=== PATIENT | female | born 1980 | race Caucasian/White ===

== ENCOUNTER 2018-12-21 15:41 | Emergency (ER) | payer OTHER ==
[~2018-12-21] VITALS: Ht 167.6 cm; Wt 59.1 kg
[~2018-12-21 15:41] MED LIST: DIPH25CA83 PO; DULO-31 PO; PROC5TAB56 PO
[2018-12-21 15:57] VITALS: BP 144/85
== END 2018-12-21 16:15 | disposition home or self-care (01) ==
LOC: ER 15:42
DX: L71.0 Perioral dermatitis (principal); T49.0X5A Adverse effect of local antifungal, anti-infective and anti-inflammatory drugs, initial encounter; J45.909 Unspecified asthma, uncomplicated; Z88.5 Allergy status to narcotic agent; Z88.6 Allergy status to analgesic agent; Z79.899 Other long term (current) drug therapy; Y92.89 Other specified places as the place of occurrence of the external cause
CPT/HCPCS: 99281

== ENCOUNTER 2019-01-06 16:58 | Emergency (ER) | payer OTHER ==
[~2019-01-06] VITALS: Ht 167.6 cm; Wt 59.1 kg
[2019-01-06 17:00] VITALS: BP 131/88
--- NOTE | 2019-01-06 17:41 | NUR ---
WENT TO SEE THE PT TO DO ASSESSMENT ,DR KINCAID WENT TO SEE PT BUT NO ONE WAS IN THE ROOM,PT LFT WITHOUT ANY INFORMATION.DR KINCAID IS AWARE.
== END 2019-01-06 17:56 | disposition left against medical advice (07) ==
LOC: ER 16:59
DX: F41.9 Anxiety disorder, unspecified (principal); Z53.21 Procedure and treatment not carried out due to patient leaving prior to being seen by health care provider

== ENCOUNTER 2019-01-09 11:14 | Emergency (ER) | payer OTHER ==
[~2019-01-09] VITALS: Ht 170.2 cm; Wt 59.1 kg
[2019-01-09 11:24] VITALS: BP 161/100
== END 2019-01-09 12:54 | disposition left against medical advice (07) ==
LOC: ER 11:14
DX: F41.9 Anxiety disorder, unspecified (principal); Z53.21 Procedure and treatment not carried out due to patient leaving prior to being seen by health care provider

== ENCOUNTER 2019-03-16 15:37 | Emergency (ER) | payer OTHER ==
[~2019-03-16] VITALS: Ht 167.6 cm; Wt 59.1 kg
[2019-03-16] MEDS ORDERED: CLON-528 PO (16:27)
[2019-03-16] MEDS ORDERED: DULO-31 PO (16:28)
[2019-03-16] MEDS ORDERED: clonazePAM 1mg tablet PO ONE (16:30)
--- NOTE | 2019-03-16 16:46 | NUR ---
ROXANA REPORTS THAT SHE HAS EMPLOYED MANY TOOLS FRO HER ANXIETY SUCH HEALTHIER DIET, EXCERSIZE, SLOW BREATHING AND MEDIATATION. HER "PANIC ATTACKS" TEND TO HAPPEN AT WORK. ROXANA HAS NOT IDENTIFIED TRIGGERS AT WORK. PATIENT IS GOING TO GET RECONNECTED WITH HER THERAPIST.
[2019-03-16 16:49] VITALS: BP 124/65
== END 2019-03-16 16:52 | disposition home or self-care (01) ==
LOC: ER 15:38
DX: F41.9 Anxiety disorder, unspecified (principal); J45.909 Unspecified asthma, uncomplicated; F32.9 Major depressive disorder, single episode, unspecified; F10.99 Alcohol use, unspecified with unspecified alcohol-induced disorder; Z98.890 Other specified postprocedural states; Z88.5 Allergy status to narcotic agent; Z88.6 Allergy status to analgesic agent; Z88.8 Allergy status to other drugs, medicaments and biological substances; Z79.899 Other long term (current) drug therapy; Y90.9 Presence of alcohol in blood, level not specified
CPT/HCPCS: 93005; 99284

== ENCOUNTER 2019-05-01 15:41 | Emergency (ER) | payer OTHER ==
[~2019-05-01] VITALS: Ht 167.6 cm; Wt 60.0 kg
[~2019-05-01 15:41] MED LIST changes: +CLON-528 PO
[2019-05-01] MEDS ORDERED: hydrOXYzine 25 MG tablet PO ONE (16:00)
[2019-05-01 17:41] VITALS: BP 127/96
== END 2019-05-01 18:05 | disposition home or self-care (01) ==
LOC: ER 15:41
DX: I10 Essential (primary) hypertension (principal); J45.909 Unspecified asthma, uncomplicated; F41.9 Anxiety disorder, unspecified; F32.9 Major depressive disorder, single episode, unspecified; Z98.890 Other specified postprocedural states; Z88.5 Allergy status to narcotic agent; Z88.6 Allergy status to analgesic agent; Z88.8 Allergy status to other drugs, medicaments and biological substances; Z79.2 Long term (current) use of antibiotics; Z79.899 Other long term (current) drug therapy
CPT/HCPCS: 99283; Z7610; 99282

== ENCOUNTER 2020-01-17 22:27 | Emergency (ER) | payer OTHER ==
[~2020-01-17] VITALS: Ht 167.6 cm; Wt 59.1 kg
[2020-01-17 22:29] VITALS: BP 131/95
[2020-01-17] MEDS ORDERED: ipratropium/albuterol 3ml nebule NEB ONE (22:40)
[2020-01-17] MEDS ORDERED: dexamethasone 4mg tablet PO ONE (22:40)
[2020-01-17] MEDS ORDERED: IPRA3AMP31 IH (22:49)
--- NOTE | 2020-01-17 23:26 | NUR ---
Pt stated she doesnt want to take oral steroids.
== END 2020-01-17 23:41 | disposition home or self-care (01) ==
LOC: ER 22:27
DX: J45.901 Unspecified asthma with (acute) exacerbation (principal); J20.9 Acute bronchitis, unspecified; F41.9 Anxiety disorder, unspecified; F32.9 Major depressive disorder, single episode, unspecified; Z72.89 Other problems related to lifestyle; Z88.5 Allergy status to narcotic agent; Z79.899 Other long term (current) drug therapy
CPT/HCPCS: 94640; 94760; 99283

== ENCOUNTER 2020-04-18 15:53 | Emergency (ER) | payer OTHER ==
[~2020-04-18] VITALS: Ht 167.6 cm; Wt 61.1 kg
[~2020-04-18 15:53] MED LIST changes: +IPRA3AMP31 IH
[2020-04-18 15:56] VITALS: BP 152/98
== END 2020-04-18 16:42 | disposition home or self-care (01) ==
LOC: ER 15:54
DX: R03.0 Elevated blood-pressure reading, without diagnosis of hypertension (principal); F41.1 Generalized anxiety disorder; J45.909 Unspecified asthma, uncomplicated; Z88.8 Allergy status to other drugs, medicaments and biological substances; Z79.899 Other long term (current) drug therapy
CPT/HCPCS: 93005; 99283

== ENCOUNTER 2020-09-17 12:23 | Emergency (ER) | payer OTHER ==
[~2020-09-17] VITALS: Ht 167.6 cm; Wt 61.4 kg
[2020-09-17 13:11] LABS: BASOPHILS # (AUTO) 0.1 X10'3 (0-0.2); BASOPHILS % (AUTO) 1.3 % (0-1); EOSINOPHILS # (AUTO) 0.3 X10'3 (0-0.9); EOSINOPHILS % (AUTO) 7.1 % (0-6); HEMATOCRIT 39.1 % (35.0-45.0); HEMOGLOBIN 13.2 g/dl (12.0-16.0); LYMPHOCYTES # (AUTO) 1.4 X10'3 (1.1-4.8); LYMPHOCYTES % (AUTO) 33.2 % (21-51); MEAN CORPUSCULAR HGB CONC 33.9 g/dL (33.0-36.5); MEAN CORPUSCULAR VOLUME 88.6 FL (78-98); MONOCYTES # (AUTO) 0.5 X10'3 (0-0.9); MONOCYTES % (AUTO) 10.7 % (2-12); NEUTROPHILS # (AUTO) 2.1 X10'3 (1.8-7.7); NEUTROPHILS % (AUTO) 47.7 % (42-75); PLATELET COUNT 348 X10'3 (140-440); RED BLOOD COUNT 4.41 X10'6 (4.20-5.60); RED CELL DISTRIBUTION WIDTH 12.9 % (11.5-14.5); WHITE BLOOD COUNT 4.4 X10'3 (4.5-11.0)
[2020-09-17 13:22] LABS: ALANINE AMINOTRANSFERASE 27 U/L (12-78); ALBUMIN 3.8 G/DL (3.4-5.0); ALKALINE PHOSPHATASE 56 IU/L (46-116); ANION GAP 8 (8-16); ASPARTATE AMINO TRANSFERASE 21 U/L (10-37); BILIRUBIN,TOTAL 0.8 MG/DL (0.1-1.0); BLOOD UREA NITROGEN 12 MG/DL (7-18); BUN/CREATININE RATIO 14.3 (6.6-38.0); CALCIUM 8.5 MG/DL (8.5-10.1); CHLORIDE 104 MMOL/L (99-107); CREATININE 0.84 MG/DL (0.40-0.90); GLUCOSE 100 MG/DL (70-104); POTASSIUM 4.2 MMOL/L (3.5-5.1); SODIUM 139 MMOL/L (135-145); TOTAL CARBON DIOXIDE 26.9 MMOL/L (24-32); TOTAL PROTEIN 7.5 G/DL (6.4-8.2); eGFR 75 ML/MIN
[2020-09-17 14:40] VITALS: BP 135/94
== END 2020-09-17 15:07 | disposition home or self-care (01) ==
LOC: ER 12:25
DX: F41.9 Anxiety disorder, unspecified (principal); F17.210 Nicotine dependence, cigarettes, uncomplicated; F32.9 Major depressive disorder, single episode, unspecified; Z60.2 Problems related to living alone; J45.909 Unspecified asthma, uncomplicated; Z88.5 Allergy status to narcotic agent; Z88.6 Allergy status to analgesic agent; Z88.8 Allergy status to other drugs, medicaments and biological substances; Z79.899 Other long term (current) drug therapy
CPT/HCPCS: 36415; 71045; 80053; 82948; 83880; 84484; 85025; 93005; 99285

== ENCOUNTER 2021-01-10 08:39 | Emergency (ER) | payer OTHER ==
[~2021-01-10] VITALS: Ht 167.6 cm; Wt 61.4 kg
[2021-01-10 08:44] VITALS: BP 135/93
[2021-01-10] MEDS ORDERED: cloNIDine 0.1 mg tablet PO ONE (09:05)
== END 2021-01-10 10:10 | disposition home or self-care (01) ==
LOC: ER 08:39
DX: F41.9 Anxiety disorder, unspecified (principal); F32.9 Major depressive disorder, single episode, unspecified; J45.909 Unspecified asthma, uncomplicated; Z88.5 Allergy status to narcotic agent; Z88.6 Allergy status to analgesic agent; Z88.8 Allergy status to other drugs, medicaments and biological substances
CPT/HCPCS: 99281; 99283

== ENCOUNTER → 2022-03-11 | Emergency (ER) | payer MEDICAID, OTHER ==
[~2022-03-11] VITALS: Ht 168.9 cm; Wt 62.0 kg
[~2022-03-11] MED LIST changes: +ALB0.5UD IH; +PRED20TA PO; +predniSONE 20 mg tablet PO ONE
[2022-03-11 20:12] VITALS: BP 129/92
== END | disposition home or self-care (01) ==
LOC: ER 19:45
DX: J45.909 Unspecified asthma, uncomplicated (principal); R07.89 Other chest pain; R06.02 Shortness of breath; F41.9 Anxiety disorder, unspecified; F32.A Depression, unspecified; Z72.89 Other problems related to lifestyle; Z60.2 Problems related to living alone; Z88.5 Allergy status to narcotic agent; Z88.8 Allergy status to other drugs, medicaments and biological substances; Z79.899 Other long term (current) drug therapy
CPT/HCPCS: 99283; J7512

== ENCOUNTER 2022-03-27 11:39 | Emergency (ER) | payer SELFPAY ==
[~2022-03-27] VITALS: Ht 167.6 cm; Wt 61.0 kg
[~2022-03-27 11:39] MED LIST changes: -predniSONE 20 mg tablet PO ONE
[2022-03-27 11:51] VITALS: BP 150/99
[2022-03-27 11:59] LABS: BASOPHILS # (AUTO) 0.1 X10'3 (0-0.2); BASOPHILS % (AUTO) 0.6 % (0-1); EOSINOPHILS # (AUTO) 0.2 X10'3 (0-0.9); EOSINOPHILS % (AUTO) 1.6 % (0-6); HEMATOCRIT 40.9 % (35.0-45.0); HEMOGLOBIN 13.3 g/dl (12.0-16.0); LYMPHOCYTES # (AUTO) 3.1 X10'3 (1.1-4.8); LYMPHOCYTES % (AUTO) 26.2 % (21-51); MEAN CORPUSCULAR HGB CONC 32.5 g/dL (33.0-36.5); MEAN CORPUSCULAR VOLUME 89.1 FL (78-98); MEAN PLATELET VOLUME 7.6 FL (7.4-10.4); MONOCYTES # (AUTO) 0.8 X10'3 (0-0.9); MONOCYTES % (AUTO) 6.7 % (2-12); NEUTROPHILS # (AUTO) 7.6 X10'3 (1.8-7.7); NEUTROPHILS % (AUTO) 64.9 % (42-75); PLATELET COUNT 387 X10'3 (140-440); RED BLOOD COUNT 4.59 X10'6 (4.20-5.60); RED CELL DISTRIBUTION WIDTH 12.9 % (11.5-14.5); WHITE BLOOD COUNT 11.7 X10'3 (4.5-11.0)
[2022-03-27 12:31] LABS: ALANINE AMINOTRANSFERASE 26 U/L (12-78); ALBUMIN/GLOBULIN RATIO 1.2 (1.1-1.5); ALKALINE PHOSPHATASE 58 IU/L (46-116); ANION GAP 11 (8-16); ASPARTATE AMINO TRANSFERASE 17 U/L (10-37); BILIRUBIN,TOTAL 0.6 MG/DL (0.1-1.0); BLOOD UREA NITROGEN 18 MG/DL (7-18); BUN/CREATININE RATIO 20.9 (6.6-38.0); CHLORIDE 98 MMOL/L (99-107); CREATININE 0.86 MG/DL (0.40-0.90); GLUCOSE 94 MG/DL (70-104); MAGNESIUM 1.8 MG/DL (1.5-2.4); POTASSIUM 3.6 MMOL/L (3.5-5.1); SODIUM 134 MMOL/L (135-145); TOTAL CARBON DIOXIDE 24.9 MMOL/L (24-32); TOTAL PROTEIN 7.4 G/DL (6.4-8.2); eGFR 72 ML/MIN
== END 2022-03-27 14:48 | disposition home or self-care (01) ==
LOC: ER 11:40
DX: R07.89 Other chest pain (principal); J45.909 Unspecified asthma, uncomplicated; F41.9 Anxiety disorder, unspecified; F32.9 Major depressive disorder, single episode, unspecified; Z72.89 Other problems related to lifestyle; Z60.2 Problems related to living alone; Z79.899 Other long term (current) drug therapy; Z88.5 Allergy status to narcotic agent; Z88.6 Allergy status to analgesic agent
CPT/HCPCS: 36415; 71045; 80053; 83735; 83880; 84484; 85025; 93005; 99285

== ENCOUNTER 2022-09-21 12:17 | Emergency (ER) | payer MEDICAID, OTHER ==
[~2022-09-21] VITALS: Ht 167.6 cm; Wt 62.3 kg
[~2022-09-21 12:17] MED LIST changes: -ALB0.5UD IH; -PRED20TA PO
[2022-09-21 12:24] VITALS: BP 115/89
--- NOTE | 2022-09-21 12:30 | NUR ---
EKG 1220
[2022-09-21 12:38] LABS: BASOPHILS # (AUTO) 0.1 X10'3 (0-0.2); BASOPHILS % (AUTO) 1.2 % (0-1); EOSINOPHILS # (AUTO) 0.5 X10'3 (0-0.9); EOSINOPHILS % (AUTO) 10.3 % (0-6); HEMATOCRIT 39.9 % (35.0-45.0); HEMOGLOBIN 13.5 g/dl (12.0-16.0); LYMPHOCYTES # (AUTO) 1.7 X10'3 (1.1-4.8); LYMPHOCYTES % (AUTO) 33.7 % (21-51); MEAN CORPUSCULAR HEMOGLOBIN 28.4 PG (27.0-31.0); MEAN CORPUSCULAR HGB CONC 33.8 g/dL (33.0-36.5); MEAN CORPUSCULAR VOLUME 84.2 FL (78-98); MEAN PLATELET VOLUME 7.7 FL (7.4-10.4); MONOCYTES # (AUTO) 0.4 X10'3 (0-0.9); MONOCYTES % (AUTO) 7.9 % (2-12); NEUTROPHILS # (AUTO) 2.4 X10'3 (1.8-7.7); NEUTROPHILS % (AUTO) 46.9 % (42-75); PLATELET COUNT 371 X10'3 (140-440); RED BLOOD COUNT 4.74 X10'6 (4.20-5.60); RED CELL DISTRIBUTION WIDTH 14.1 % (11.5-14.5); WHITE BLOOD COUNT 5.1 X10'3 (4.5-11.0)
[2022-09-21] MEDS ORDERED: albuterol 2.5 MG/3 ML nebule NEB ONE (13:55)
[2022-09-21] MEDS ORDERED: ALBU8HFA PO (13:58)
[2022-09-21] MEDS ORDERED: FLUT1DIS INH (13:58)
[2022-09-21] MEDS ORDERED: MONT-40 PO (13:58)
== END 2022-09-21 14:39 | disposition home or self-care (01) ==
LOC: ER 12:17
DX: J45.998 Other asthma (principal); Z88.5 Allergy status to narcotic agent; Z88.6 Allergy status to analgesic agent
CPT/HCPCS: 36415; 71045; 84484; 85025; 93005; 94640; 94760; 99285

== ENCOUNTER 2023-08-06 15:36 | Emergency (ER) | payer MEDICAID ==
[~2023-08-06] VITALS: Ht 167.6 cm; Wt 63.7 kg
[~2023-08-06 15:36] MED LIST changes: -CLON-528 PO; +CLON0.5T2 PO; +FLUT1DIS INH; +MONT-40 PO
[2023-08-06 16:09] VITALS: BP 161/105; PULSE 80; RESP 18; TEMP 97.3; O2SAT 98
== END 2023-08-06 22:27 | disposition left against medical advice (07) ==
LOC: ER 15:37
DX: J45.909 Unspecified asthma, uncomplicated (principal); Z53.21 Procedure and treatment not carried out due to patient leaving prior to being seen by health care provider

== ENCOUNTER 2023-08-29 00:51 | Emergency (ER) | payer MEDICAID ==
[~2023-08-29] VITALS: Ht 167.6 cm; Wt 63.2 kg
[2023-08-29 02:49] VITALS: BP 119/86; PULSE 63; RESP 18; TEMP 97.7; O2SAT 97
== END 2023-08-29 02:50 | disposition home or self-care (01) ==
LOC: ER 00:51
DX: I10 Essential (primary) hypertension (principal); J45.909 Unspecified asthma, uncomplicated; F41.9 Anxiety disorder, unspecified; F32.A Depression, unspecified; Z60.2 Problems related to living alone; Z88.8 Allergy status to other drugs, medicaments and biological substances; Z79.899 Other long term (current) drug therapy
CPT/HCPCS: 93005; 99283

== ENCOUNTER 2024-02-04 22:19 | Emergency (ER) | payer MEDICAID ==
[~2024-02-04] VITALS: Ht 167.6 cm; Wt 65.1 kg
[2024-02-04 22:28] VITALS: BP 153/107; PULSE 67; RESP 16; TEMP 97.8; O2SAT 100
== END 2024-02-04 22:50 | disposition home or self-care (01) ==
LOC: ER 22:19
DX: I10 Essential (primary) hypertension (principal); J45.909 Unspecified asthma, uncomplicated; F41.9 Anxiety disorder, unspecified; F32.A Depression, unspecified; F17.210 Nicotine dependence, cigarettes, uncomplicated; Z60.2 Problems related to living alone; Z88.8 Allergy status to other drugs, medicaments and biological substances; Z88.6 Allergy status to analgesic agent; Z88.5 Allergy status to narcotic agent; Z79.899 Other long term (current) drug therapy
CPT/HCPCS: 99281

== ENCOUNTER 2024-03-20 13:24 | Emergency (ER) | payer MEDICAID ==
[~2024-03-20] VITALS: Ht 167.6 cm; Wt 63.6 kg
[2024-03-20 13:33] VITALS: TEMP 98.6
[2024-03-20] MEDS: albuterol 2.5 MG/3 ML nebule NEB ONE (14:15)
[2024-03-20 14:18] VITALS: PULSE 66; RESP 14; O2SAT 99
[2024-03-20] MEDS: predniSONE 20 mg tablet PO ONE (14:25)
[2024-03-20 14:29] VITALS: PULSE 72; RESP 12; O2SAT 99
[2024-03-20 14:40] LABS: BASOPHILS # (AUTO) 0.1 X10'3 (0-0.2); BASOPHILS % (AUTO) 1.3 % (0-1); EOSINOPHILS # (AUTO) 0.3 X10'3 (0-0.9); EOSINOPHILS % (AUTO) 5.6 % (0-6); HEMATOCRIT 37.9 % (35.0-45.0); HEMOGLOBIN 12.9 g/dl (12.0-16.0); LYMPHOCYTES # (AUTO) 1.8 X10'3 (1.1-4.8); LYMPHOCYTES % (AUTO) 34.7 % (21-51); MEAN CORPUSCULAR HEMOGLOBIN 29.6 PG (27.0-31.0); MEAN CORPUSCULAR VOLUME 87.2 FL (78-98); MEAN PLATELET VOLUME 7.5 FL (7.4-10.4); MONOCYTES # (AUTO) 0.4 X10'3 (0-0.9); MONOCYTES % (AUTO) 8.3 % (2-12); NEUTROPHILS # (AUTO) 2.7 X10'3 (1.8-7.7); NEUTROPHILS % (AUTO) 50.1 % (42-75); PLATELET COUNT 345 X10'3 (140-440); RED BLOOD COUNT 4.35 X10'6 (4.20-5.60); RED CELL DISTRIBUTION WIDTH 15.6 % (11.5-14.5); WHITE BLOOD COUNT 5.3 X10'3 (4.5-11.0)
[2024-03-20 15:01] LABS: ALANINE AMINOTRANSFERASE 17 U/L (12-78); ALBUMIN/GLOBULIN RATIO 1.1 (1.1-1.5); ALKALINE PHOSPHATASE 52 IU/L (46-116); ANION GAP 10 (8-16); ASPARTATE AMINO TRANSFERASE 19 U/L (10-37); BILIRUBIN,TOTAL 1.1 MG/DL (0.1-1.0); BLOOD UREA NITROGEN 20 MG/DL (7-18); BUN/CREATININE RATIO 20.8 (10.0-20.0); CALCIUM 8.9 MG/DL (8.5-10.1); CHLORIDE 104 MMOL/L (99-107); CREATININE 0.96 MG/DL (0.40-0.90); GLUCOSE 95 MG/DL (70-104); POTASSIUM 4.2 MMOL/L (3.5-5.1); PRO BRAIN NATRIURETIC PEPTIDE 48 PG/ML (0-125); SODIUM 138 MMOL/L (135-145); TOTAL CARBON DIOXIDE 24.3 MMOL/L (24-32); TOTAL PROTEIN 7.8 G/DL (6.4-8.2); eCRCL 70 ML/MIN; eGFR 63 ML/MIN
[2024-03-20] MEDS ORDERED: PRED20TA PO (15:20)
[2024-03-20] MEDS ORDERED: ALBU18HF2 INH (15:20)
[2024-03-20 15:55] VITALS: BP 120/89; PULSE 78; RESP 17; O2SAT 100
[2024-03-20] MEDS ORDERED: BUDE0.5A11 NEB (15:58)
== END 2024-03-20 16:14 | disposition home or self-care (01) ==
LOC: ER 13:25
DX: J45.901 Unspecified asthma with (acute) exacerbation (principal); E03.9 Hypothyroidism, unspecified; F32.A Depression, unspecified; F41.9 Anxiety disorder, unspecified; F10.90 Alcohol use, unspecified, uncomplicated; Z88.5 Allergy status to narcotic agent; Z88.6 Allergy status to analgesic agent; Z88.8 Allergy status to other drugs, medicaments and biological substances
CPT/HCPCS: 36415; 71045; 80053; 83880; 84484; 85025; 93005; 94640; 94760; 99285

== ENCOUNTER 2024-11-01 18:14 | Emergency (ER) | payer SELFPAY ==
[~2024-11-01] VITALS: Ht 167.6 cm; Wt 53.6 kg
[~2024-11-01 18:14] MED LIST changes: +ALBU18HF2 INH
[2024-11-01 18:19] VITALS: BP 140/95; PULSE 77; RESP 15; TEMP 97.6; O2SAT 99
== END 2024-11-01 19:50 | disposition left against medical advice (07) ==
LOC: ER 18:14
DX: F41.9 Anxiety disorder, unspecified (principal); Z88.5 Allergy status to narcotic agent; Z88.8 Allergy status to other drugs, medicaments and biological substances; Z53.21 Procedure and treatment not carried out due to patient leaving prior to being seen by health care provider

== ENCOUNTER 2024-12-16 16:42 | Emergency (ER) | payer BC ==
[~2024-12-16] VITALS: Ht 165.1 cm; Wt 60.2 kg
[2024-12-16 16:51] VITALS: TEMP 98.1
[2024-12-16] MEDS ORDERED: LIDOcaine 2% Viscous 15ml cup MM PRN (17:05)
--- NOTE | 2024-12-16 17:26 | ELECTROCARDIOGRAPH REPORT ---
[facility] Test Date: 2024-12-16 Test Time: 16:48:13 Pat Name: ARON ZARATE Department: EMERGENCY ROOM Patient ID: [facility]-[id number] Room: Gender: F Biomedical Engineering Technician: PM : 1980 Requested By: ALIS ALONZO Order Number: [id number] Reading MD: Dr. Wolfgang Loja Measurements Intervals [place] Rate: 87 P: 82 PA: 158 QRS: 91 QRSD: 96 T: 106 QT: 384 QTc: 462 Interpretive Statements Sinus rhythm Borderline right axis deviation Anteroseptal infarct, old Nonspecific T abnormalities, lateral leads Baseline wander in lead(s) V3 Electronically Signed On 12-18-2024 21:43:[address] Wolfgang Loja Please click the below link to view image of tracing.
--- NOTE | 2024-12-16 17:35 | Physician Documentation ---
History of Present Illness ~ Chief Complaint: Allergic Reaction Stated Complaint: ALLERGIC REACTION Time Seen by MD: 17:05 Primary Medical Doctor: Dr. Leander [facility] 44-year-old female with a history of anxiety and allergic reactions reports to the ED today with a complaint of shortness a breath and abdominal pain after ingesting a gluten free she is proximally an hour ago. denies any throat swelling states she is allergic to many medications and can not take antihistamines due to her sensitivity. Patient is speaking in very clear sentences without difficulty her vitals are reassuring she is not tachycardic normal blood pressure and normal SpO2 Day of Onset: Dec 16, 2024 Medication Reconciliation Allergies: Coded Allergies: codeine (Unverified Allergy, Intermediate, ITCH, 12/16/24) aspirin (Unverified Allergy, Unknown, 12/16/24) acetaminophen (Verified Adverse Reaction, Unknown, 12/16/24) PER PATIENT IT CAUSES A "PANIC ATTACK." ziprasidone HCl (Unverified Adverse Reaction, Unknown, 12/16/24) ziprasidone mesylate (Unverified Adverse Reaction, Unknown, 12/16/24) Scheduled Clonazepam (Klonopin), 1 TAB PO QDAY PRN Diphenhydramine Hcl (Benadryl), 25 MG PO Q6H Duloxetine Hcl* (Cymbalta*), 60 MG PO DAILY, (Reported) Duloxetine Hcl* (Cymbalta*), 1 CAP PO DAILY Fluticasone/Salmeterol (Advair 100-50 Diskus), 1 PUFFS INH Q12H Ipratropium/Albuterol Sulfate (Duoneb 2.5-0.5 Mg/3 Ml Soln), 3 ML IH Q4H Montelukast Sodium (Montelukast Sodium), 1 TAB PO DAILY Scheduled PRN Albuterol Sulfate (Ventolin Hfa), 2 PUFFS INH Q4HPRN PRN for wheezing Prochlorperazine Maleate (Compazine), 1 TAB PO BID PRN for headache Past Medical History Past Medical History: Asthma, *INFECTIOUS DZ*, Anxiety, Depression Past Surgical History: noncontributory Alcohol Use: Sober Drug Use: none Lives with: Alone Lives In: Home Occupation: employed Review of Systems All Other Systems at this time: Reviewed and Negative ROS As stated above in the HPI, otherwise all systems are reviewed and negative. Physical Exam Vital Signs: Temperature: 98.1, Source: Oral, Heart Rate: 90, Respiratory Rate: 18, BP: 135/99, Pulse Oximetry: 100, Weight: 60.200 Oxygen Flow Rate: 0 Physical Exam General: Alert, no apparent distress. Respiratory: Lungs clear, no respiratory distress. Cardiovascular: Regular rate and rhythm, no murmurs. Gastrointestinal: Soft, nontender, nondistended. Bowels sounds present. Extremities: Normal range of motion, no deformity. Neurologic: Oriented x4. Psychiatric: Normal mood and affect. Skin: Normal color, warm and dry. No edema, no ecchymosis. Progress Results/Orders Results/Orders Completed Orders - MILAGROS NUÑEZ NP Mag & Alum Hydrox/Simeth Susp (Maalox Or (12/16/24 17:05) Lidocaine 2% Viscous (Xylocaine 2% Visco (12/16/24 17:05) Lorazepam Tablet (Ativan Tablet) (12/16/24 17:05) Vital Signs 12/16/24 12/16/24 12/16/24 16:51 17:25 18:18 Temp 98.1 Pulse 90 74 Resp 18 18 B/P (MAP) 135/99 115/88 (97) Pulse Ox 100 98 O2 Flow Rate 0 0 Departure Disposition: 01 HOME / SELF CARE / HOMELESS Impression: Primary Impression: Panic attack Condition: Improved Discharge Instructions: Panic Attack, [id number] Referrals: NO PRIMARY CARE PROVIDER (PCP) Signature Scribe Signature: g Attestation: Scribed for Milagros Nuñez Np by Milagros Malcolm NP . 12/16/24 22:16 MILAGROS NUÑEZ NP Dec 16, 2024 17:35
[2024-12-16 18:18] VITALS: BP 115/88; PULSE 74; RESP 18; O2SAT 98
[2024-12-16] MEDS: mag hydrox/Alum hydrox/simeth 30ml oral suspension PO ONE (18:19)
== END 2024-12-16 18:32 | disposition home or self-care (01) ==
LOC: ER 16:43
DX: F41.0 Panic disorder [episodic paroxysmal anxiety] (principal); F41.9 Anxiety disorder, unspecified; F32.A Depression, unspecified; I25.2 Old myocardial infarction; J45.909 Unspecified asthma, uncomplicated; Z88.5 Allergy status to narcotic agent; Z88.6 Allergy status to analgesic agent; Z88.8 Allergy status to other drugs, medicaments and biological substances; Z79.899 Other long term (current) drug therapy
CPT/HCPCS: 93005; 99283